=== PATIENT | male | born 1990 | race African-American/Black ===

== ENCOUNTER 2017-10-03 06:41 | Emergency (ER) | payer BC ==
[~2017-10-03] VITALS: Ht 172.7 cm; Wt 76.3 kg
[~2017-10-03 06:41] MED LIST: CIPRO500 MG PO; CLARITIN-D 121 EACH PO; MOTRIN800 MG PO; NOHOMEMEDS; ULTRAM50 MG PO
[2017-10-03 09:25] LABS: BASOPHIL (%) 0.2 % (0-1); EOSINOPHIL (%) 1.4 % (0-5); EOSINOPHIL COUNT 0.2 K/uL (0-0.3); HEMATOCRIT 39.4 % (38.0-50.0); HEMOGLOBIN 13.2 G/DL (12.5-16.6); IMMATURE GRANULOCYTE (%) 0.3 % (0.0-0.7); LYMPHOCYTE (%) 19.8 % (15-42); LYMPHOCYTE COUNT 2.4 K/uL (1.0-2.8); MCH 31.9 PG (29.0-34.0); MCHC 33.5 G/DL (30.0-36.0); MCV 95.2 FL (86-99); MONOCYTE (%) 9.4 % (3-12); MONOCYTE COUNT 1.1 K/uL (0-0.8); NEUTROPHIL (%) 68.9 % (45-76); NEUTROPHIL COUNT 8.3 K/uL (1.8-6.4); PLATELET COUNT 273 K/uL (156-360); RBC DIS.WIDTH-CV 11.3 % (11.8-14.6); RBC DIS.WIDTH-SD 39.5 % (39-53); RED BLOOD COUNT 4.14 M/uL (4.00-5.50)
[2017-10-03 09:33] LABS: CHLORIDE 106 mEq/L (99-109); POTASSIUM 4.1 mEq/L (3.7-5.4); SODIUM 138 mEq/L (136-147)
[2017-10-03 09:34] LABS: GLUCOSE 88 mg/dL (70-99)
[2017-10-03 09:38] LABS: CREATININE 0.8 mg/dL (0.6-1.3); GFR ESTIMATE (CALCULATED) > 59 mL/min/ (58.99-99999)
[2017-10-03 09:39] LABS: UREA NITROGEN (BUN) 12 mg/dL (9-23)
[2017-10-03] MEDS ORDERED: KEFLEX500 MG PO (10:24)
[2017-10-03] MEDS ORDERED: BACTRIM,SEPT1 TABLET PO (10:24)
[2017-10-03 12:29] VITALS: BP 120/78
== END 2017-10-03 12:31 | disposition home or self-care (01) ==
LOC: EME 06:41
PROVIDERS: Emergency Medicine
DX: J32.0 Chronic maxillary sinusitis (principal); L03.213 Periorbital cellulitis; G89.29 Other chronic pain; F17.200 Nicotine dependence, unspecified, uncomplicated; Z88.6 Allergy status to analgesic agent
CPT/HCPCS: 70450; 70486; 80048; 85025; J0696; J3370